=== PATIENT | male | born 1985 | race Hispanic/Latino ===

== ENCOUNTER 2023-11-28 09:44 | Outpatient (CLI) | payer OTHER, SELFPAY ==
--- NOTE | ~2023-11-28 | XR_ITS ---
Cervical Spine: AP, lateral, open-mouth views Clinical History: Pain Findings: There is straightening of the normal cervical lordosis. No fracture or subluxation seen. Th ere is moderate degenerative disc narrowing at C4-C5. Pre-vertebral soft tissues are unremarkable. Impression: Straightening of the normal cervical lordosis with mild degenerative change, as above. Reviewed, dictated and finalized at [facility]. Impression: Straightening of the normal cervical lordosis with mild degenerative change, as above.
== END 2023-11-28 09:45 ==
PROVIDERS: PCP Family Medicine; Visit Provider Nurse Practitioner Family
DX: M54.2 Cervicalgia (principal); M43.8X2 Other specified deforming dorsopathies, cervical region
CPT/HCPCS: 72040

== ENCOUNTER 2024-11-10 15:43 | Outpatient (CLI) | payer OTHER, SELFPAY ==
--- NOTE | ~2024-11-10 | CT_ITS ---
CLINICAL INDICATION: Left upper quadrant pain COMPARISON: None. TECHNIQUE: Multiple contiguous axial images of the abdomen and pelvis were performed without the admi nistration of intravenous contrast The dose-length product (DLP) was 254.94 mGy-cm. Automated exposure control and iterative reconstruction technique were employed. FINDINGS/OBSERVATIONS: Visualized lower thorax: The bilateral lung bases are clear. The heart is of normal size, without pericardial effusion. Small hiatal hernia is present. Liver: The liver demonstrates homogeneous attenuation and is not enlarged measuring 15 cm in longitudinal di mension. Gallbladder and biliary system: The gallbladder is decompressed, and otherwise unremarkable. Pancreas: Limited evaluation of the pancreas secondary to the lack of intravenous contrast. Spleen: The spleen demonstrates homogeneous attenuation and is not enlarged measuring 8 cm in longitudinal di mension. Kidneys: Likely chronic right-sided UPJ obstruction with mild right-sided hydronephrosis. The left kidney is u nremarkable. Adrenal glands: Unremarkable. Gastrointestinal tract: Retained gastric contents distending the stomach, possibly the source of patient's discomfort. No findings to suggest gastric outlet obstruction. Colonic diverticulosis without surrounding inflammatory change. Appendix: The air-filled appendix is of normal caliber (axial series, images 65 through 70). Vasculature: Unremarkable. Lymph nodes: Limited evaluation without intravenous contrast. Pelvic structures: The bladder is only minimally distended, and otherwise unremarkable. The prostate gland is not enlarged. Body wall and musculoskeletal: Small fat-containing periumbilical hernia. Evidence of prior repair of a left inguinal hernia, now with recurrence, containing fat. No significant degenerative disease within the lower thoracic or lumbosacral spine. IMPRESSION: Recurrent fat-containing left inguinal hernia. Retained gastric contents distending the stomach. Likely chronic right-sided UPJ obstruction. Reviewed, dictated and finalized at [facility]
== END 2024-11-10 15:44 | disposition home or self-care (01) ==
LOC: MICIMG 15:44
PROVIDERS: PCP Family Medicine; Visit Provider Student in an Organized Health Care Education/Training Program
DX: K46.9 Unspecified abdominal hernia without obstruction or gangrene (principal); K31.89 Other diseases of stomach and duodenum; R10.12 Left upper quadrant pain
CPT/HCPCS: 74176